=== PATIENT | female | born 1990 | race Caucasian/White ===

== ENCOUNTER 2016-07-06 23:38 | Emergency (ER) | payer MEDICAID ==
[2016-07-07] MEDS ORDERED: diphenhydrAMINE HCL 50 MG/ML VIAL IV ONE (00:02)
--- NOTE | 2016-07-07 00:05 | ERNOTE ---
Headache ER HPI - General Presenting Symptoms: headache Time Seen by Provider: 07/06/16 23:54 Source: patient Exam Limitations: no limitations - Immun/Allergies/Home Medications Immunizations: IMMUNIZATION HX Immunizations Up to Date Yes Allergies/Adverse Reactions: Allergies Penicillins Allergy (Verified 07/06/16 23:46) Home Medications: HOME MEDICATIONS NK [No Home Medication] 07/06/16 [Last Taken Unknown] - Pain Pain Score: 7 - History of Present Illness Activity at onset: other - rest Timing of Headache: gradual Context Headache: Present: new onset Quality: Present: achy Severity Maximum: Present: moderate Severity-Currently: Present: moderate Headache frequency: Present: no recent headache Associated Symptoms: Reports: nausea, vomiting Exacerbated by:: Reports: movement, position Review of Systems - Narrative Narrative: Pt 37 GA, no complications, moderate morning sickness initially none lately. - Review of Systems Constitutional: Absent: recent illness, fever EYE: Present: vision changes - with onset of headache ENT: Present: no symptoms reported Respiratory: Present: no symptoms reported Cardiology: Present: no symptoms reported Gastrointestinal/Abdominal: Present: See HPI, nausea, vomiting. Absent: abdominal pain Genitourinary: Present: no symptoms reported Musculoskeletal: Present: no symptoms reported. Absent: neck pain Skin: Present: no symptoms reported Neurological: Present: no symptoms reported Endocrine: Present: no symptoms reported Hematologic/Lymphatic: Present: no symptoms reported Psych: Present: no symptoms reported - Patient's Past Medical History Patient History - Medical: No pertinent hx Patient History - Cardiac/Respiratory: No pertinent hx Patient History - Cancer: No Hx of Cancer Patient History - Surgical Procedures: - Social History Living Situations: home Smoking Status: Never smoker Patient requests Smoking Cessation Consult: No Initiate information on Smoking Cessation: No Alcohol Use: none Drug Use: none - Immunizations Immunizations Up to Date: Yes Physical Exam - Physical Exam General Appearance: Present: wd/wn, alert, no apparent distress Eye Exam: Normal inspection: bilateral, PERRL: bilateral Neck: Present: normal inspection, nontender, supple, full range of motion Respiratory: Present: no respiratory distress Back Exam: Present: normal inspection, normal range of motion, no vertebral tenderness Extremity Exam: Present: normal inspection, non-tender Neurological Exam: Present: alert, oriented, normal mood/affect, no motor/ sensory deficits, 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 - Vital Signs Patient's Vital Signs:: I have reviewed the patient's vital signs. Vital Signs: Vital Signs 07/06/16 23:42 Temperature 36.2 C L Pulse Rate 89 Respiratory 18 Rate Blood Pressure 134/75 O2 Sat by Pulse 100 Oximetry - Progress/Reassessment Chief Complaint: Headache Progress:: Unchanged - continues to have pain at same level. Nubain and ondansetron ordered Departure Clinical Impression: Headache Qualifiers: Headache type: unspecified Headache chronicity pattern: acute headache Intractability: not intractable Qualified Code(s): R51 - Headache - Departure Disposition: Home self-care Condition: Good Instructions: Tension Headache, [id number] Additional Instructions: See your OB if headaches continue
[2016-07-07] MEDS ORDERED: diphenhydrAMINE HCL 50 MG/ML VIAL ONE (00:12)
[2016-07-07 00:15] LABS: Hematocrit 33.1 % (37.0-47.0); Hemoglobin 10.2 gm/dL (12.5-16.0); Mean Cell Volume 75.9 fl (78-100); Mean Corpuscular Hemoglobin 23.4 pg (27-31); Mean Corpuscular Hgb Conc 30.8 g/dl (32-36); Mean Platelet Volume 9.4 fl (6.0-9.5); Neutrophil # 11.2 K/mm3 (1.3-6.0); Neutrophil % 76.7 % (42-75.0); Platelet Count 260 K/mm3 (150-450); Red Blood Count 4.36 M/mm3 (4.2-5.4); Red Cell Distribution Width 14.7 % (11.5-14.0); White Blood Count 14.6 K/mm3 (4.0-10.5)
--- OUTSIDE RECORDS SUMMARY | 2016-07-07 00:26 | XMS REPORT | Continuity of Care Document ---
:1990 Author Organization [facility] ([facility]) Address [address] [place] [address] Phone [phone] Care Team Providers Name Role Phone Provider, No-Primary Care Primary Care Provider Unavailable Source Comments This disclosure is being made pursuant to the Care Everywhere program, applicable federal and state laws, and may not contain all informaitonavailable regarding this patient.[facility] ([facility]) Active Allergies and Adverse Reactions Allergen Noted Date Severity Reactions Comments Penicillin 06/08/2016 Rash Current Medications No known medications Active Problems Problem Noted Date Failed 1 hour GTT 07/06/2016 History of section complicating 06/08/2016 History of 2 sections 06/08/2016 Desires (vaginal after ) trial 06/08/2016 Currently Estimated Date of Delivery Comments Yes 08/03/2016 Based on Ultrasound Most Recent Encounters Date Type Specialty Providers Description 07/06/2016 Office Visit Gynecology Azalia Rhodes MD Dx: Supervision of Rubi Parikh MD normal (Primary Dx) 06/08/2016 Office Visit Pathology Juan Francisco Beck MD Dx: Supervision of Azalia Rhodes MD normal in Lab Services, Pfp third trimester 06/08/2016 Office Visit Gynecology Azalia Rhodes MD Dx: Supervision of Trung Hernandez MD normal in third trimester (Primary Dx) 06/08/2016 Office Visit Gynecology Azalia Rhodes MD Chief Comp: Patient Reported Reason For Visit 06/08/2016 Hospital Encounter Obstetrics Darío Rondon MD Dx: Desires (vaginal after ) trial 05/08/2016 Orders/Notes Obstetrics Arianna Mccarthy DO Dx: Desires (vaginal after ) trial (Primary Dx) Social History Tobacco Use Types Packs/Day Years Used Date Former Smoker Quit: 10/17/2015 Smokeless Tobacco: Never Used Alcohol Use Drinks/Week oz/Week Comments No Last Filed Vital Signs Vital Sign Reading Time Taken Blood Pressure 124/63 07/06/2016 4:47 PM CDT Pulse 99 07/06/2016 4:47 PM CDT Temperature 36.4 C (97.5 F) 07/06/2016 4:47 PM CDT Respiratory Rate - - Height 1.6 m (5' 3") 06/08/2016 1:29 PM CDT Weight 71.9 kg (158 lb 8.2 oz) 07/06/2016 4:47 PM CDT Body Mass Index 28.09 07/06/2016 4:47 PM CDT Oxygen Saturation - - Plan of Care Date Type Specialty Providers Description 07/13/2016 Appointment Gynecology Conor Chang MD Chief Comp: Patient [address] [place] [address] [phone] (Fax) 07/20/2016 Appointment Gynecology Default, Other Billg - [facility] [address] [place] [address] [phone] (Fax) Chief Comp: Patient Conor Chang MD [address] [place] [address] [phone] (Fax) Reported Reason For Visit 07/27/2016 Appointment Gynecology Aretha Miller MD Chief Comp: Patient [address] [place] [address] [phone] (Fax) 08/03/2016 Appointment Gynecology Aretha Miller MD Chief Comp: Patient [address] [place] [address] [phone] (Fax) 08/10/2016 Appointment Gynecology Aretha Miller MD Chief Comp: Patient [address] Rep[place] [address] [phone] (Fax) Health Maintenance Due Date Last Done Comments Hepatitis B Vaccine (1 of 3 - Primary Series) 1991 HPV Vaccine (1 of 3 - Female 3 Dose Series) 2002 Tdap Vaccine 2002 Cervical Cancer Screening 2009 Lipid Disorder Screening 2009 MMR Vaccine 2009 Td Vaccine 2009 Influenza Vaccine: Seasonal (Season Ended) 2016 Results from Last 3 Months RBC ANTIBODY SCREEN (06/08/2016 3:23 PM) Component Value Range Antibody Screen Negative Specimen Blood ABORH (06/08/2016 3:23 PM) Component Value Range ABORH O Positive Specimen Expiration Date 2016-06-11 Specimen Blood OB ULTRASOUND (06/08/2016 1:01 PM) Narrative Obstetric Ultrasound Report Detailed Survey Referral from: Dr. Arianna Mccarthy , [facility] [employer] [address] [place], [id number], [place] OB Clinic IVF/E ndocrine PATIENT INFORMATION: Name: CAITLIN DESAI#: [id number] Age:26 y/oExam Date: 06/08/2016 :1990 Visit #: 1 LMP:Not Available Location: Obstetric Unit # Fetuses: 1 INDICATION:Transfer of care with history of 2 C-sections and desires . No information. DATING: Assigned GA GA by LMPGA by US (MADELAINE)MADELAINE NA 34 1/7 wks 32 0/7 wks08/03/16 BIOMETRY: BPD: 82.8 mm33 2/7 wksHC:310.2 mm 34 5/7 wks(72%) (64%) Femur: 68.3 mm35 1/7 wksAC:295.8 mm 33 4/7 wks(76%) (91%) EFW: 2325 gms5 lbs 2 oz (84%) Lat Ventricles: 5.7 mm Cisterna Magna: 6.7 mm Nasal Bone: Present-12.0 mmFetal Heart Rate: 140 bpm FL/AC:0.23 HL/BPD: 0.7 FL/BPD: 0.82 Humerus:58.0 mm33 4 (77%) PRESENTATION/CORD/PLACENTA/FLUID/CERVIX: Presentation: Cephalic Umbilical Cord: 3 Vessel Cord.Normal insertion into the placenta. Placenta: Posterior.There Is No Evidence Of Placenta Previa. Amniotic Fluid: Maximum Vertical Pocket=54 mm.Subjective AF Volume : Normal. (WTN=186 mm) Cervix: Normal ANATOMICAL SURVEY: Normal ------ Lateral Ventricles Cerebellum Cisterna Magna Profile Nose Lips Cervical Spine Thoracic Spine Lumbar Spine Sacrum Four Chamber ViewRVOT LVOT Aortic Arch Cardiac [place] Cardiac Position Heart Rate Ductal Arch IVCSVC DiaphragmStomach Kidney - LeftKidney - Right Bladder Forearm - Left Forearm - RightLower Leg - Left Lower Leg - RightFoot - Left Foot - Right Suboptimal Palate Ventral Wall Hand - LeftHand - Right Abnormal -------- None identified TARGETED CARDIAC: Ductal Arch: Normal IVC: Normal SVC: Normal REPORTS ANALYST FINDINGS: Ovaries:Left:Not Seen Right: Not Seen EFW Summary Table Exam DateFetus #EFW Percentile ------ - 84 % AMNIOTIC FLUID VOLUME: NORMALTotal MIRELLA: 179 mm.Subjective AF Volume: Normal. Maximum Vertical Pocket:54 mm CERVIX: Visualized COMMENTS: I attest to having personally viewed the images and my comments and impression are as follows: The exam was limited due to the late gestational age. IUP consistent with given MADELAINE. The hands, palate and cord insertion were suboptimally visualized due to late gestational age. Within the limits of ultrasound, no structural anomalies were seen. Appropriate fluid. Dr. Darío Rondon MD ([id number]) Paint Mixer Machine: Ainsley Erickson RDMS,RVT Procedure Note [place], Incoming Imaging Results - [place] Jun 10, 2016 4:20 PM CDT Obstetric Ultrasound Report Detailed Survey Referral from: Dr. Arianna Mccarthy , [facility] Department of Obstetrics &Gynecology [employer] [address] [place] [address] [place], [place] OB Clinic IVF/Endocrine PATIENT INFORMATION: Name: CAITLIN NICOLE MR#: [id number] Age: 26 y/o Exam Date: 06/08/2016 : 1990 Visit #: 1 LMP: Not Available Location: Obstetric Unit # Fetuses: 1 INDICATION: Transfer of care with history of 2 C-sections and desires . No information. DATING: Assigned GA GA by LMP GA by US (MADELAINE) MADELAINE NA 34 1/7 wks 32 0/7 wks 5/19/17 BIOMETRY: BPD: 82.8 mm 33 2/7 wks HC: 310.2 mm 34 5/7 wks(72%) (64%) Femur: 68.3 mm 35 1/7 wks AC: 295.8 mm 33 4/7 wks(76%) (91%) EFW: 2325 gms 5 lbs 2 oz (84%) Lat Ventricles: 5.7 mm Cisterna Magna: 6.7 mm Nasal Bone: Present-12.0 mm Heart Rate: 140 bpm FL/AC: 0.23 HL/BPD: 0.7 FL/BPD: 0.82 Humerus: 58.0 mm 334 (77%) PRESENTATION/CORD/PLACENTA/FLUID/CERVIX: Presentation: Cephalic Umbilical Cord: 3 Vessel Cord. Normal insertion into the placenta. Placenta: Posterior. There Is No Evidence Of Placenta Previa. Amniotic Fluid: Maximum Vertical Pocket=54 mm. Subjective AFVolume: Normal. (ZAM=498 mm) Cervix: Normal ANATOMICAL SURVEY: Normal ------ Lateral Ventricles Cerebellum Cisterna Magna Profile Nose Lips Cervical Spine Thoracic Spine Lumbar Spine Sacrum Four Chamber View RVOT LVOT Aortic Arch Cardiac [place] Cardiac Position Heart Rate Ductal Arch IVC SVC Diaphragm Stomach Kidney - Left Kidney - Right Bladder Forearm - Left Forearm - Right Lower Leg - Left Lower Leg - Right Foot - Left Foot - Right Suboptimal Palate Ventral Wall Hand - Left Hand - Right Abnormal -------- None identified TARGETED CARDIAC: Ductal Arch: Normal IVC: Normal SVC: Normal REPORTS ANALYST FINDINGS: Ovaries: Left: Not Seen Right: Not Seen EFW Summary Table Exam Date Fetus # EFW Percentile --------- ------- ---- 06/08/16 1 2325 84 % AMNIOTIC FLUID VOLUME: NORMAL Total MIRELLA: 179 mm. Subjective AF Volume: Normal. Maximum Vertical Pocket: 54 mm CERVIX: Visualized COMMENTS: I attest to having personally viewed the images and my comments and impression are as follows: The exam was limited due to the late gestational age. IUP consistent with given MADELAINE. The hands, palate and cord insertion were suboptimally visualized dueto late gestational age. Within the limits of ultrasound, no structural anomalies were seen. Appropriate fluid. Dr. Darío Rondon MD ([id number]) Paint Mixer Machine: Ainsley Erickson RDMS,RVT EXTERNAL GLUCOSE TOLERANCE TEST 1 HOUR GLUCOSE (05/08/2016) Component Value Range Ext GTT 1 hr 142 MG/DL
[2016-07-07 00:36] LABS: Albumin * 2.4 gm/dl (3.4-5.0); Anion Gap 13.3 mmol/L (6.8-13.8); BUN/Creatinine Ratio 9.3 (9.0-21.6); Bilirubin, Total 0.3 mg/dL (0.0-1.1); Ca. Corrected For Albumin 9.9 mg/dL (8.4-10.2); Calcium * 8.9 mg/dL (7.9-10.9); Carbon Dioxide 24.7 mmol/L (24-32.6); Total Protein 6.6 gm/dL (6.2-8.2)
[2016-07-07] MEDS ORDERED: NALBUPHINE HCL 20 MG/ML AMPUL IV ONE (01:35)
[2016-07-07] MEDS ORDERED: ONDANSETRON HCL/PF 2 MG/ML VIAL IV ONE (01:37)
[2016-07-07] MEDS ORDERED: NALBUPHINE HCL 20 MG/ML AMPUL ONE (01:41)
[2016-07-07] MEDS ORDERED: ONDANSETRON HCL/PF 2 MG/ML VIAL ONE (01:41)
[2016-07-07 02:05] VITALS: BP 128/69
== END 2016-07-07 02:04 | disposition home or self-care (01) ==
LOC: ER 23:38
DX: O26.899 Other specified pregnancy related conditions, unspecified trimester (principal); R51 Headache; Z3A.36 36 weeks gestation of pregnancy